=== PATIENT | female | born 1980 | race Caucasian/White ===

== ENCOUNTER 2017-08-09 12:28 | Outpatient (CLI) | END 2017-08-09 12:29 | disposition home or self-care (01) | LOC: LAB 12:28 | PROVIDERS: ATTEND Nurse Practitioner Family | DX: R05 Cough (principal); R50.9 Fever, unspecified | CPT/HCPCS: 87502 ==

== ENCOUNTER 2017-10-18 12:31 | Outpatient (CLI) ==
--- NOTE | 2017-10-18 13:44 | DI ---
EXAM: Two views of the right hip HISTORY: Pain TECHNIQUE: AP lateral views of the right hip were obtained. FINDINGS: The femoral head is seen in normal position. The femoral neck appears intact. The joint spaces are normal. IMPRESSION: No acute abnormalities are seen in the right hip.
--- NOTE | 2017-10-18 13:47 | DI ---
EXAM: Three views of the lumbar spine. HISTORY: Pain TECHNIQUE: AP lateral, coned-down lateral views of the lumbar spine were obtained. FINDINGS: Postoperative changes of fusion are seen at L4-L5 and L5-L1. History of the lumbar spine. There is no evidence of acute compression fracture. There is no pars defect. IMPRESSION: No acute abnormalities are seen within the lumbar spine. Previous fusion seen at the L4-L5 and L5-S1 levels.
== END 2017-10-18 12:32 | disposition home or self-care (01) ==
LOC: RAD 12:31
PROVIDERS: ATTEND Internal Medicine
DX: M25.551 Pain in right hip (principal); M54.9 Dorsalgia, unspecified

== ENCOUNTER → 2018-08-06 | Outpatient (POV) | payer OTHER | LOC: FCC-LAB 13:23 | PROVIDERS: ATTEND Family Medicine | DX: T78.3XXA Angioneurotic edema, initial encounter (principal); L29.9 Pruritus, unspecified | CPT/HCPCS: 36415; 80053; 85025; 86140; 86160 ==